=== PATIENT | male | born 1965 | race Caucasian/White ===

== ENCOUNTER 2020-11-12 09:32 | Day surgery (SDC) | payer MEDICARE, OTHER ==
[~2020-11-12] VITALS: Ht 185.4 cm; Wt 90.1 kg
[~2020-11-12 09:32] MED LIST: BACL20 PO; BISA10S PR; Bentyl20 MG UD; DIAZ5 UD; DULCOLAX400 MG/5 M PO; KETO15TC TOP; MAGCIT300 PO; MASOPHEN500 M2 PO; MICONAZOLE NIT130 GM; OMEP20ER PO; RISP1 PO; SENNA LAXATIVE8.6 MG PO; SERT50 PO; STARCH; [UNRECOGNIZED DRUG - OTHER] TOP
--- NOTE | 2020-11-12 10:57 | NUR ---
INTO [facility] VIA PERSONAL W/C WITH RN FROM [facility] HOME FROM HANDICAPPED AT BEDSIDE. MOTHER AVAILABLE FOR TELEPHONE CONSENT. History, Chart, Medications and Allergies reviewed before start of procedure.Patient confirms NPO status and agrees with scheduled surgery. Surgical site prepped with 2% Chlorhexidine cloth wipe. Lungs clear T/O to Auscultation. Patient States Post-Procedure ride home has been arranged.
--- NOTE | 2020-11-12 11:11 | NUR ---
REPORT GIVEN TO NETTIE PAULINO AND ALVAREZ PAULINO
--- NOTE | 2020-11-12 12:02 | NUR ---
WITNESSED CONSCENT FOR SURGEON AND ANNESTHESIOLOGIST. SPOKE WITH PATIENT MOTHER.
--- NOTE | 2020-11-12 12:33 | NUR ---
11/12/20 1232 Joel Guillory History, Chart, Medications and Allergies reviewed before start of procedure. MONITOR INTACT WITH CONTINUOUS PULSE OXIMETRY AND INTERMITTENT BP. 3-LEAD EKG REVIEWED WITH PHYSICIAN PRIOR TO START OF PROCEDURE. O2 VIA N/C INTACT THROUGHOUT SEDATION/PROCEDURE. See Anesthesia record WITH DR ARANDA.
--- NOTE | 2020-11-12 13:07 | NUR ---
RECIEVED PATIENT INTO STEP AND RECIEVED PATIENT. VSS
--- NOTE | 2020-11-12 13:27 | NUR ---
Discharge instructions reviewed with patient. Patient verbalizes understanding. Copy given to patient to take home. Patient States Post-Procedure ride home has been arranged. Discharged via wheelchair to private car for ride home WITH DUE DILIGENCE COORDINATOR.
== END 2020-11-12 13:31 | disposition home or self-care (01) ==
LOC: ORSCMMR 09:32
PROVIDERS: Surgery
PROC: 0DH63UZ Insertion of Feeding Device into Stomach, Percutaneous Approach (ICD-10-PCS; principal; 2020-11-12 11:30)
DX: R13.12 Dysphagia, oropharyngeal phase (principal); G80.8 Other cerebral palsy; Z79.899 Other long term (current) drug therapy
CPT/HCPCS: J0690; J2704; J7120

== ENCOUNTER 2022-10-21 14:22 | Inpatient (IN) | payer OTHER ==
[~2022-10-21] VITALS: Ht 185.4 cm; Wt 87.2 kg
[2022-10-21 15:45] LABS: BASOPHILS ABSOLUTE AUTO 0.03 K/mm3 (0.00-0.23); BASOPHILS PERCENT AUTO 1 % (0-2); EOSINOPHILS ABSOLUTE AUTO 0.06 K/mm3 (0.00-0.68); EOSINOPHILS PERCENT AUTO 1 % (0-6); Hematocrit 34.5 % (37.0-53.0); Hemoglobin 11.9 g/dL (13.5-17.5); IMMATURE GRAN ABSOLUTE AUTO 0.07 K/mm3 (0.00-0.10); IMMATURE GRAN PERCENT AUTO 2 % (0-1); LYMPHOCYTES ABSOLUTE AUTO 0.75 K/mm3 (0.84-5.20); LYMPHOCYTES PERCENT AUTO 18 % (21-46); MONOCYTES ABSOLUTE AUTO 0.48 K/mm3 (0.16-1.47); MONOCYTES PERCENT AUTO 12 % (4-13); Mean Corpuscular HGB Conc 34.5 g/dL (31.5-36.5); Mean Corpuscular Volume 102 fL (80-100); NEUTROPHILS PERCENT AUTO 67 % (41-73); NRBC ABSOLUTE 0.02 K/mm3 (0.00-0.02); NRBC Auto 0.5 /100 WBC (0.0-0.2); Platelet Count 76 K/mm3 (150-400); RDW Coefficient Variation 15.3 % (11.7-14.2); RDW Standard Deviation 55.8 fL (35.1-46.3); White Blood Cell Count 4.19 K/mm3 (4.00-11.30)
[2022-10-21 16:03] LABS: Albumin, Blood 2.8 g/dL (3.4-5.0); Albumin/Globulin Ratio 0.6 (0.8-1.8); Bilirubin, Total 0.5 mg/dL (0.1-1.0); Bun/Creatinine Ratio 45.2 (12.0-20.0); Calcium, Blood 10.1 mg/dL (8.5-10.1); Creatinine, Blood 0.42 mg/dL (0.60-1.20); Globulin, Blood 4.4 g/dL (2.2-4.0); Potassium, Blood 4.1 mmol/L (3.5-5.5); Total Protein, Blood 7.2 g/dL (6.4-8.2)
[2022-10-21 22:20] VITALS: BP 84/47
[2022-10-21] MEDS ORDERED: PSYSENPA PO (22:47)
--- NOTE | 2022-10-22 05:02 | NUR ---
SHIFT SUMMARY PT ARRIVED TO THE FLOOR AT APPROX 2220, CAREGIVER AT BEDSIDE TO ANSWER ADMISSION QUESTIONS. PT IS NONVERBAL AND QUADRAPELIGIC, WHEELCHAIR BOUND AT BASELINE. FULL ASSESSMENT DONE AT THAT TIME, VITALS TAKEN- 2L NC WHEN ARRIVED TO THE FLOOR, CONT PULSE OX IN PLACE. CAREGIVER LEFT BEDSIDE AND PT RESTED WELL THROUGHOUT THE SHIFT. BELONGINGS TAKEN W/ CAREGIVER. WILL CONTINUE TO MONITOR AND REPORT TO ONCOMING RN.
[2022-10-22 05:59] LABS: BASOPHILS ABSOLUTE AUTO 0.02 K/mm3 (0.00-0.23); BASOPHILS PERCENT AUTO 1 % (0-2); EOSINOPHILS ABSOLUTE AUTO 0.06 K/mm3 (0.00-0.68); EOSINOPHILS PERCENT AUTO 2 % (0-6); Hematocrit 33.4 % (37.0-53.0); Hemoglobin 11.1 g/dL (13.5-17.5); IMMATURE GRAN ABSOLUTE AUTO 0.07 K/mm3 (0.00-0.10); IMMATURE GRAN PERCENT AUTO 2 % (0-1); LYMPHOCYTES ABSOLUTE AUTO 0.98 K/mm3 (0.84-5.20); LYMPHOCYTES PERCENT AUTO 30 % (21-46); MONOCYTES ABSOLUTE AUTO 0.31 K/mm3 (0.16-1.47); MONOCYTES PERCENT AUTO 10 % (4-13); Mean Corpuscular HGB 33.9 pg (26.0-34.0); Mean Corpuscular HGB Conc 33.2 g/dL (31.5-36.5); Mean Corpuscular Volume 102 fL (80-100); Mean Platelet Volume 11.1 fL (9.1-12.4); NEUTROPHILS ABSOLUTE AUTO 1.84 K/mm3 (1.96-9.15); NEUTROPHILS PERCENT AUTO 56 % (41-73); NRBC ABSOLUTE 0.02 K/mm3 (0.00-0.02); NRBC Auto 0.6 /100 WBC (0.0-0.2); RDW Coefficient Variation 15.3 % (11.7-14.2); RDW Standard Deviation 56.8 fL (35.1-46.3); Red Blood Cell Count 3.27 M/mm3 (4.30-5.90); White Blood Cell Count 3.28 K/mm3 (4.00-11.30)
[2022-10-22 06:37] VITALS: BP 76/48
[2022-10-22 06:41] VITALS: BP 110/72
[2022-10-22 06:42] LABS: Albumin, Blood 2.4 g/dL (3.4-5.0); Albumin/Globulin Ratio 0.6 (0.8-1.8); Bilirubin, Total 0.4 mg/dL (0.1-1.0); Bun/Creatinine Ratio 39.6 (12.0-20.0); Calcium, Blood 9.5 mg/dL (8.5-10.1); Creatinine, Blood 0.43 mg/dL (0.60-1.20); Magnesium, Blood 1.9 mg/dL (1.6-2.4); Potassium, Blood 4.6 mmol/L (3.5-5.5); Total Protein, Blood 6.4 g/dL (6.4-8.2)
[2022-10-22 07:41] VITALS: BP 107/61
--- NOTE | 2022-10-22 10:18 | NUR ---
Titrated the patient off of O2 via nasal cannula. He was at 1.5 LMP sustaining at 91%. Pt desaturated on RA to 86%, 1.5 L of nasal cannula oxygen restarted and continued at this time.
--- NOTE | 2022-10-22 10:49 | NUR ---
Medications: Unable to give medications due to not having the appropriate equipment to access the patient's PEG tube. Will have to wait for caregiver from [facility] to supply equipment to administer medications and feedings. Physician notified. Pt getting continuous NS via IV.
[2022-10-22 14:59] VITALS: BP 93/64
--- NOTE | 2022-10-22 18:18 | NUR ---
SHIFT SUMMARY: NPO NON-VERBAL AND TOTAL DEPENDENT CP PATIENT. FULL CODE AT RESIDES AT [facility] FOR THE HANDICAP. CAREGIVERS ARE PRESENT PERIODICALLY THROUGHOUT THE SHIFT. ADVISEMENT FROM DR. ESTRADA EARLIER IN THE SHIFT TO WEEN THE PATIENT OFF OF O2. SHORTLY AFTER O2 WAS D/C'D PT'S O2 DESATURATED TO 86%. O2 WAS THEN RESTARTED AND CONTINUED, MAINTAINING THE PT'S O2 SAT OF 91% OR > ON 1.5 L, TOLERATING WELL. PT'S A.M. MEDS AND FEEDING WERE HELD/DELAYED D/T NOT HAVING PEG TUBE ACCESS. SECURE LOCK WAS OBTAINED WITHIN FACILITY, BUT DIDN'T FIT. APPROPRIATE SIZE SECURE LOCK OBTAINED FROM CAREGIVER FROM [facility]. MORNING FEED WAS ADMINISTERED ONCE PEG TUBE WAS ABLE TO BE ACCESSED, HELD OFF ON MORNING MEDS TO AVOID OVERLAP WITH AFTERNOON/EVENING MEDS. Q2 HR TURNS PROVIDED, PATIENT COMFORTABLE, AND NOT IN DISTRESS. PLACED IN SEMI-ALVARADO'S POSITION D/T ASPIRATION PREVENTION AND IMPROVEMENT OF BREATHING R/T PNEUMONIA.
[2022-10-22 19:49] VITALS: BP 114/53
[2022-10-23] VITALS (11 sets, daily range): BP systolic 85–127; BP diastolic 59–75
[2022-10-23 06:24] LABS: BASOPHILS ABSOLUTE AUTO 0.02 K/mm3 (0.00-0.23); BASOPHILS PERCENT AUTO 1 % (0-2); EOSINOPHILS ABSOLUTE AUTO 0.04 K/mm3 (0.00-0.68); EOSINOPHILS PERCENT AUTO 1 % (0-6); Hematocrit 30.9 % (37.0-53.0); Hemoglobin 10.2 g/dL (13.5-17.5); IMMATURE GRAN ABSOLUTE AUTO 0.07 K/mm3 (0.00-0.10); IMMATURE GRAN PERCENT AUTO 2 % (0-1); LYMPHOCYTES ABSOLUTE AUTO 0.71 K/mm3 (0.84-5.20); LYMPHOCYTES PERCENT AUTO 20 % (21-46); MONOCYTES ABSOLUTE AUTO 0.31 K/mm3 (0.16-1.47); MONOCYTES PERCENT AUTO 9 % (4-13); Mean Corpuscular HGB 34.3 pg (26.0-34.0); Mean Corpuscular Volume 104 fL (80-100); Mean Platelet Volume 10.7 fL (9.1-12.4); NEUTROPHILS ABSOLUTE AUTO 2.47 K/mm3 (1.96-9.15); NEUTROPHILS PERCENT AUTO 68 % (41-73); NRBC ABSOLUTE 0.02 K/mm3 (0.00-0.02); NRBC Auto 0.6 /100 WBC (0.0-0.2); Platelet Count 67 K/mm3 (150-400); RDW Coefficient Variation 15.5 % (11.7-14.2); RDW Standard Deviation 58.8 fL (35.1-46.3); Red Blood Cell Count 2.97 M/mm3 (4.30-5.90); White Blood Cell Count 3.62 K/mm3 (4.00-11.30)
[2022-10-23 06:27] LABS: Bun/Creatinine Ratio 36.4 (12.0-20.0); Calcium, Blood 9.4 mg/dL (8.5-10.1); Creatinine, Blood 0.44 mg/dL (0.60-1.20); Potassium, Blood 3.9 mmol/L (3.5-5.5)
--- NOTE | 2022-10-23 15:57 | NUR ---
PT PRESENTS PALE WHITE, COLD CLAMMY. TEMP TEMPORAL 95.5, ORAL NOT AVAIL, DOES NOT FOLLOW INST AT BASELINE, IS NONVERBAL. VS 85/61, P 58, R 12, T 95.5, O2 95% 1L. CALLED SENDY. ORDRES NEW LABS, CBC, CMP, PROCALCITONIN, RECTAL TEMP.
--- NOTE | 2022-10-23 16:02 | NUR ---
NEW VS, 1101/75, P 54, BLANKETS PLACED. NO CHANGE TEMP.
--- NOTE | 2022-10-23 16:53 | NUR ---
PT CALLED DR GARCIAS UPDATE. TEMP RECTAL 92.9. WE HAVE ALREADY PLACED WARM BLANKETS AND K-PAD. VS 124/62, P 62. COLOR PINK NOW. STILL COOL CLAMMY. REQUEST MONIQUE SOLANO, TRANSFER TO PCU, TELE, NEW LABS.
--- NOTE | 2022-10-23 17:17 | NUR ---
ENCYCLOPEDIA RESEARCH WORKER OK TO HAVE ON MEDICAL FLOOR WITH LIZ SOLANO. CALLED DR ESTRADA TO ASK IF OKAY TO KEEP HERE. OKAY TO KEEP MED FLOOR. Q1HR TEMPS UNTIL STABLE
[2022-10-23 17:39] LABS: BASOPHILS ABSOLUTE AUTO 0.01 K/mm3 (0.00-0.23); BASOPHILS PERCENT AUTO 0 % (0-2); EOSINOPHILS ABSOLUTE AUTO 0.04 K/mm3 (0.00-0.68); EOSINOPHILS PERCENT AUTO 1 % (0-6); Hematocrit 31.3 % (37.0-53.0); Hemoglobin 10.4 g/dL (13.5-17.5); IMMATURE GRAN ABSOLUTE AUTO 0.06 K/mm3 (0.00-0.10); IMMATURE GRAN PERCENT AUTO 2 % (0-1); LYMPHOCYTES ABSOLUTE AUTO 0.75 K/mm3 (0.84-5.20); LYMPHOCYTES PERCENT AUTO 27 % (21-46); MONOCYTES ABSOLUTE AUTO 0.18 K/mm3 (0.16-1.47); MONOCYTES PERCENT AUTO 6 % (4-13); Mean Corpuscular HGB 34.2 pg (26.0-34.0); Mean Corpuscular HGB Conc 33.2 g/dL (31.5-36.5); Mean Corpuscular Volume 103 fL (80-100); Mean Platelet Volume 10.9 fL (9.1-12.4); NEUTROPHILS ABSOLUTE AUTO 1.76 K/mm3 (1.96-9.15); NEUTROPHILS PERCENT AUTO 63 % (41-73); Platelet Count 70 K/mm3 (150-400); RDW Coefficient Variation 15.3 % (11.7-14.2); RDW Standard Deviation 56.8 fL (35.1-46.3); Red Blood Cell Count 3.04 M/mm3 (4.30-5.90)
[2022-10-23 17:51] LABS: Albumin, Blood 2.4 g/dL (3.4-5.0); Albumin/Globulin Ratio 0.6 (0.8-1.8); Bilirubin, Total 0.2 mg/dL (0.1-1.0); Bun/Creatinine Ratio 31.4 (12.0-20.0); Calcium, Blood 8.9 mg/dL (8.5-10.1); Creatinine, Blood 0.48 mg/dL (0.60-1.20); Globulin, Blood 3.8 g/dL (2.2-4.0); Thyroid Stimulating Hormone 4.65 uIU/mL (0.360-4.800); Total Protein, Blood 6.2 g/dL (6.4-8.2)
--- NOTE | 2022-10-23 18:46 | NUR ---
PT IS NONVERBAL AT BASELINE. DOES OPEN EYES WHEN FIRST IN ROOM. PT LUNGS CLEAR THIS AM AND THIS AFT. ABLE TO TITRATE DOWN TO 1L ON O2. H/R REG, NO MURMUR NOTED. PLACED ON TELE THIS AFT. NSR AT 69 AT THIS TIME. PT HAD CHANGE IN BP AND TEMP AND COLOR THIS AFT. NOTICED DURING AFTER NOON VITAL SIGN TAKING. TEMP ORAL NOT READABLE, TEMPORAL LOW, UNDER ARM LOW. CALLED DR FOR ORDERS. RECTAL TEMP 92.8. ILZ HUGGER PLACED. UPDATED RENÉ PAULINO. ALSO ABOUT Q 1 HR RECTAL TEMPS UNTIL TEMP NORMAL. PT WAS BOLUSED AND RESTARTED ON NS AT 100 FOR BP. PLACED ON TELE. PT IS PRESENTLY WARM, PINK, UNDER LIZ BLANKET. LAST RECTAL TEMP 94.3. LIGHTLY CLAMMY, BP 124/62 AT 1645, 115/60 NOW. RECOVERY RN IN ROOM THIS JADE, NOTIFIED. BED IN LOW [facility], CALL LITE IN REACH. RENÉ PAULINO NOTIFIED TO KEEP AWARE OF TEMPS TO WHEN REMOVES LIZ BLANKET. TEMP ON MEDIUM SETTING
[2022-10-24 02:45] VITALS: BP 107/47
--- NOTE | 2022-10-24 07:41 | NUR ---
PT WAS HYPOTHERMIC AT START OF SHIFT, WITH HEATED BLANKET HE RETURNED TO NORMAL TEMPERATURE, FINAL RECTAL TEMP PRIOR TO MIDNIGHT WAS 98.0, TEMPORALY CHECK AT 0245 WAS 98.7. HEATED BLANKET DC'D AROUND 2300 LAST NIGHT. 1-2 L NC TO MAINTAIN GREATER THAN 90% SATS. 2 BMS LAST NIGHT. NIGHTLY TUBE FEED ADMINISTERED ORDERED, TOLERATED WELL. NOTED SMALL WOUND ON ROOF OF MOUTH DURING ORAL CARE.
[2022-10-24 08:01] VITALS: BP 101/60
--- NOTE | 2022-10-24 09:00 | NUR ---
PT CONTINUES TO BE NONRESPONDANT PER BASELINE. FACE PRESENTS CALM RELAXED. LIGHTLY PINK COLOR. WARM TO TOUCH. LIZ HUGGER REMOVED LAST JADE. VSS. TEMP 99.3. H/R REG, NO MURMUR NOTED. PER TELE NSR AT 97. LUNGS CLEAR T/O. RESP EASY, UNLABORED. CONTINUES TO BE ON 1L O2. BT X4 LAST BM THIS AM. SOFT. UNFORMED. LOOSE. VOIDS INCONT. IN ATTENDS. ARMS CONTRACTED AT BASELINE. BED IN LOW POSITION, CALL LITE IN REACH. MOSTLY QUAD. DOES MOVE ARMS MINIMALLY.
--- NOTE | 2022-10-24 16:18 | NUR ---
PT QUIET TODAY. CONTINUES TO BE PINK, NORMAL TONE. WARM, NOT COLD. RESP EASY, UNLABORED. ON 1 L O2. RECENTLY D/C IVF. NO CHANGES NOTED TODAY. CHEST XRAY PERFORMED BY RADIOLOGY THIS AFTERNOON. NO NEW CHANGES NOTED. BED IN LOW POSITION,C ALL LITE IN REACH, PT MOSTLY QUAD.
[2022-10-24 17:18] VITALS: BP 109/58
[2022-10-24 19:56] VITALS: BP 116/56
[2022-10-25 01:51] VITALS: BP 116/63
[2022-10-25 07:37] VITALS: BP 125/63
[2022-10-25 15:56] VITALS: BP 108/55
[2022-10-25] MEDS ORDERED: AMOX-CLAV200 MG/5 M PT (17:02)
[2022-10-25] MEDS ORDERED: AZIT250 PT (17:03)
[2022-10-25] MEDS ORDERED: Q-Tussin100 MG/5 M PT (17:06)
[2022-10-25] MEDS ORDERED: VISBIOME 112.51 EACH PT (17:07)
--- NOTE | 2022-10-25 18:47 | NUR ---
DC- PT DISCHARGED TO [facility] STAFF. ALL QUESTIONS ANSWERED AND PAPERWORK SIGNED. PT LEFT WITH ALL BELONGINGS IN STABLE CONDITION ON 1L O2.
== END 2022-10-25 18:45 | disposition home or self-care (01) | DRG 193 ==
LOC: ER 14:22 → MEDS 14:23
PROVIDERS: Internal Medicine; Physician Assistant; ADMIT Student in an Organized Health Care Education/Training Program
DX: J18.9 Pneumonia, unspecified organism (principal); J96.01 Acute respiratory failure with hypoxia; D61.818 Other pancytopenia; D53.9 Nutritional anemia, unspecified; G80.9 Cerebral palsy, unspecified; E66.9 Obesity, unspecified; K21.9 Gastro-esophageal reflux disease without esophagitis; E78.5 Hyperlipidemia, unspecified; I95.9 Hypotension, unspecified; R13.10 Dysphagia, unspecified; R68.0 Hypothermia, not associated with low environmental temperature; F32.A Depression, unspecified; Z68.26 Body mass index [BMI] 26.0-26.9, adult; Z99.3 Dependence on wheelchair; Z99.81 Dependence on supplemental oxygen; Z93.1 Gastrostomy status; Z79.899 Other long term (current) drug therapy
CPT/HCPCS: 36415; 71045; 71046; 80048; 80053; 82533; 82947; 83605; 83735; 83880; 84145; 84443; 85025; 87040; 93005; 93010; 94762; 96361; 96365; 96372; 96375; 99285-25; A9270; C9113; G0378; J0456; J0696; J1650; J7030; J7040; J7050

== ENCOUNTER 2023-01-22 08:28 | Emergency (ER) | payer OTHER ==
[~2023-01-22] VITALS: Ht 182.9 cm; Wt 113.4 kg
[~2023-01-22 08:28] MED LIST changes: +AMOX-CLAV200 MG/5 M PT; +AZIT250 PT; +PSYSENPA PO; +Q-Tussin100 MG/5 M PT; +VISBIOME 112.51 EACH PT
[2023-01-22 09:17] LABS: Hematocrit 39.7 % (37.0-53.0); Hemoglobin 13.5 g/dL (13.5-17.5); Mean Corpuscular HGB 32.3 pg (26.0-34.0); Mean Corpuscular Volume 95 fL (80-100); Mean Platelet Volume 10.9 fL (9.1-12.4); Platelet Count 61 K/mm3 (150-400); RDW Coefficient Variation 13.9 % (11.7-14.2); RDW Standard Deviation 46.8 fL (35.1-46.3); Red Blood Cell Count 4.18 M/mm3 (4.30-5.90)
[2023-01-22 09:26] LABS: Albumin, Blood 3.2 g/dL (3.4-5.0); Albumin/Globulin Ratio 0.8 (0.8-1.8); Bilirubin, Total 0.7 mg/dL (0.1-1.0); Calcium, Blood 9.8 mg/dL (8.5-10.1); Creatinine, Blood 0.47 mg/dL (0.60-1.20); Globulin, Blood 4.1 g/dL (2.2-4.0); Potassium, Blood 4.4 mmol/L (3.5-5.5); Total Protein, Blood 7.3 g/dL (6.4-8.2)
[2023-01-22 09:30] VITALS: BP 99/64
[2023-01-22 09:38] LABS: BAND PERCENT MAN 4 % (0-8); BASOPHILS PERCENT MAN 0 % (0-2); EOSINOPHILS PERCENT MAN 0 % (0-6); LYMPHOCYTES PERCENT MAN 6 % (21-46); MONOCYTES PERCENT MAN 3 % (4-13); NEUTROPHILS ABSOLUTE MAN 6.18 K/mm3 (1.96-9.15); SEG NEUTROPHILS PERCENT MAN 87 % (41-73); TOTAL CELLS COUNTED 100
[2023-01-22 10:33] LABS: Influenza A, PCR NEGATIVE (NEGATIVE); Influenza B, PCR NEGATIVE (NEGATIVE); Resp Syncytial Virus, PCR NEGATIVE (NEGATIVE); SARS-Cov-2 (COVID-19) PCR, MMC NEGATIVE (NEGATIVE)
== END 2023-01-22 10:59 | disposition home or self-care (01) ==
LOC: ER 08:28
PROVIDERS: Emergency Medicine
DX: J06.9 Acute upper respiratory infection, unspecified (principal); Z20.822 Contact with and (suspected) exposure to COVID-19; Z79.899 Other long term (current) drug therapy
CPT/HCPCS: 0241U; 71045; 80053; 83605; 84145; 85025; J7030

== ENCOUNTER 2025-02-24 21:52 | Inpatient (IN) | payer OTHER ==
[~2025-02-24] VITALS: Ht 182.9 cm; Wt 69.6 kg
[~2025-02-24 21:52] MED LIST changes: +ATOR40TA PT; -BACL20 PO; +BACL20 PT; +Bentyl20 MG PT; -Bentyl20 MG UD; +DIAZ5 PT; -DIAZ5 UD; -DULCOLAX400 MG/5 M PO; +DULCOLAX400 MG/5 M PT; +Fleet Enema132 ML PR; -MASOPHEN500 M2 PO; +MASOPHEN500 M2 PT; +OMEP20ER PT; +PERIDEX15 ML MM; -RISP1 PO; +RISP1 PT; -SERT50 PO; +SERT50 PT; +SIME80CH PO
[2025-02-24 23:21] LABS: BASOPHILS ABSOLUTE AUTO 0.04 K/mm3 (0.00-0.23); BASOPHILS PERCENT AUTO 1 % (0-2); EOSINOPHILS ABSOLUTE AUTO 0.15 K/mm3 (0.00-0.68); EOSINOPHILS PERCENT AUTO 4 % (0-6); Hematocrit 41.7 % (37.0-53.0); Hemoglobin 14.4 g/dL (13.5-17.5); IMMATURE GRAN ABSOLUTE AUTO 0.02 K/mm3 (0.00-0.10); IMMATURE GRAN PERCENT AUTO 1 % (0-1); LYMPHOCYTES ABSOLUTE AUTO 1.54 K/mm3 (0.84-5.20); LYMPHOCYTES PERCENT AUTO 40 % (21-46); MONOCYTES ABSOLUTE AUTO 0.26 K/mm3 (0.16-1.47); MONOCYTES PERCENT AUTO 7 % (4-13); Mean Corpuscular HGB Conc 34.5 g/dL (31.5-36.5); Mean Corpuscular Volume 93 fL (80-100); NEUTROPHILS ABSOLUTE AUTO 1.80 K/mm3 (1.96-9.15); NEUTROPHILS PERCENT AUTO 47 % (41-73); NRBC ABSOLUTE 0.00 K/mm3 (0.00-0.02); NRBC Auto 0.0 /100 WBC (0.0-0.2); RDW Coefficient Variation 12.7 % (11.7-14.2); RDW Standard Deviation 42.9 fL (35.1-46.3)
[2025-02-24 23:33] LABS: Alanine Aminotransfer (ALT/SGP 74.0 U/L (12-78); Albumin, Blood 3.5 g/dL (3.4-5.0); Albumin/Globulin Ratio 1.0 (0.8-1.8); Anion Gap 8.0 mmol/L (3-11); Aspartate Aminotrans (AST/SGOT 38.0 U/L (12-37); Bilirubin, Total 0.5 mg/dL (0.1-1.0); Blood Urea Nitrogen 18.0 mg/dL (8-24); CO2, Blood 27.0 mmol/L (21-32); Calcium, Blood 8.8 mg/dL (8.5-10.1); Chloride, Blood 105.0 mmol/L (98-108); Creatinine, Blood 0.41 mg/dL (0.60-1.20); Globulin, Blood 3.6 g/dL (2.2-4.0); Glucose, Blood 98.0 mg/dL (70-99); Magnesium, Blood 2.1 mg/dL (1.6-2.4); Potassium, Blood 3.9 mmol/L (3.5-5.5); Sodium, Blood 136.0 mmol/L (136-145); Total Protein, Blood 7.1 g/dL (6.4-8.2)
[2025-02-25 03:12] VITALS: BP 116/72
--- NOTE | 2025-02-25 04:11 | NUR ---
@6246 REPORT RECEIVED FROM ED RN REE. @7748 PT ARRIVED TO THE MEDICAL FLOOR RM #[id number]. PT WAS ACCOMPANIED BY HIS SHALLOT PACKER [facility]. PT WAS TRANSFERRED FROM THE [facility] TO THE HOSPITAL BED USING A SLIDING SHEET AND THREE STAFF ASSIST. CHARGE NURSE DANDRE COMPLETED THE ADMISSION ASSESSMENT. MED REC WAS COMPLETED BY THE ED RN REE. BED ALARM ON. Q2HR REPOSITIONING. Q2HR ATTEND CHECKS. THREE RAILS UP. CALL LIGHT W/I REACH. CAREGIVER SAMANTHA DID MENTION NOT TO HAVE ANY ITEMS W/I THE PT'S REACH. PT WILL ATTEMPT TO GRAB AND EAT ANY ITEMS. LR INFUSING ORDERED. THIS GARDEN IMPLEMENT MECHANIC SITTING BY THE DOOR MONITORING THE PT. BED AT THE LOWEST POSITION.
[2025-02-25] MEDS ORDERED: Polyethylene Glycol 3350 17 gm PO PRN (04:25)
[2025-02-25 05:54] LABS: BASOPHILS ABSOLUTE AUTO 0.05 K/mm3 (0.00-0.23); BASOPHILS PERCENT AUTO 1 % (0-2); EOSINOPHILS ABSOLUTE AUTO 0.13 K/mm3 (0.00-0.68); EOSINOPHILS PERCENT AUTO 4 % (0-6); Hematocrit 39.9 % (37.0-53.0); Hemoglobin 13.7 g/dL (13.5-17.5); IMMATURE GRAN ABSOLUTE AUTO 0.01 K/mm3 (0.00-0.10); IMMATURE GRAN PERCENT AUTO 0 % (0-1); LYMPHOCYTES ABSOLUTE AUTO 1.59 K/mm3 (0.84-5.20); LYMPHOCYTES PERCENT AUTO 45 % (21-46); MONOCYTES ABSOLUTE AUTO 0.21 K/mm3 (0.16-1.47); MONOCYTES PERCENT AUTO 6 % (4-13); Mean Corpuscular HGB Conc 34.3 g/dL (31.5-36.5); Mean Corpuscular Volume 94 fL (80-100); NEUTROPHILS ABSOLUTE AUTO 1.58 K/mm3 (1.96-9.15); NEUTROPHILS PERCENT AUTO 44 % (41-73); NRBC ABSOLUTE 0.00 K/mm3 (0.00-0.02); NRBC Auto 0.0 /100 WBC (0.0-0.2); Platelet Count 148 K/mm3 (150-400); RDW Coefficient Variation 12.9 % (11.7-14.2); RDW Standard Deviation 43.8 fL (35.1-46.3)
[2025-02-25 06:14] LABS: Anion Gap 6.0 mmol/L (3-11); Blood Urea Nitrogen 15.0 mg/dL (8-24); CO2, Blood 27.0 mmol/L (21-32); Calcium, Blood 9.2 mg/dL (8.5-10.1); Chloride, Blood 105.0 mmol/L (98-108); Creatinine, Blood 0.4 mg/dL (0.60-1.20); Glucose, Blood 89.0 mg/dL (70-99); Potassium, Blood 3.7 mmol/L (3.5-5.5); Sodium, Blood 134.0 mmol/L (136-145)
[2025-02-25 07:23] VITALS: BP 108/60
[2025-02-25] MEDS ORDERED: Enoxaparin 40 MG/0.4 ML SYR SC SCH (09:00)
--- NOTE | 2025-02-25 10:25 | NUR ---
NOTE PT HAS 1 ON 1 SITTER DUE TO NIGHT RN REPORTED "WILL EAT ANYTHING IN REACH." FALL PRECAUTIONS IN PLACE AND CALL LIGHT IN REACH. HAS GI TUBE, NO DIETITION OR TUBE FEEDINGS ORDERED. CALLED DIETITION, DIETITION REPORTED NOT KNOWING ABOUT PT. CALLED DR. DERAS TO REPORT NO ORDERS RELATED TO GI TUBE OR LAXATIVES ORDERED. REPORTED "ILL COME SEE AND ASSESS PT." PT NPO.
--- NOTE | 2025-02-25 14:02 | NUR ---
NOTE THIS AM DR. FELIPE ON PT. REPORTED HEARING "HYPOACTIVE BOWEL SOUNDS." REPORTED "WILL CALL DR. RICKS FOR CONSULT. CONTINUE FLUIDS. CAN D/C LOVENOX SINCE HIS BEDREST ACTIVITY IS HIS BASELINE." CALLED DR. DERAS DUE TO THIS RN NOTICING SCOPOLAMINE PATCH. CLARIFIED IF SHE WANTS PATCH CONTINUED WITH ORDER. DR. DERAS REPORTED "LIKELY WAS APPLIED DURING TRANSPORT CAN D/C." THIS RN REMOVED SCOLPOLOMINE PATCH BEHIND R EAR AT 1400. PT REMAINS NPO.
[2025-02-25] MEDS ORDERED: Lactulose 200 GM/300 ML Enema 300ML BTL PR PRN (14:45)
[2025-02-25 17:17] VITALS: BP 97/53
--- NOTE | 2025-02-25 19:42 | NUR ---
SHIFT SUMMARY PT NONVERBAL W CERBRAL PALSY, AND CONTRACTIONS AND QUAD. PT Q2 TURNED, ADMITTED DUE TO CONSTIPATION. 1 ON 1 SITTER D/C. PT ON BEDREST. VSS. THIS RN NOTED NO PAIN/DISCOMFORT. DR. DERAS REPORTED ONCE PT IS STOOLING WE WILL START FEEDINGS IN GI TUBE BUT NOT YET. PT IS NPO. DR. DERAS ORDERED SOAP MOHSEN ENEMA, THIS RN ADMINISTERED ENEMA, UNABLE TO ENCOURAGE PT TO CLENCH RECTUM, REPORTED TO DR. DERAS LIQUID ONCE IN CAME OUT WHILE IN ADEQUATE ENEMA POSITIONING ON L SIDE. GREEN CLEAR LIQUID CAME OUT OF RECTUM BUT WITHOUT FORMED STOOL. REPORTED TO DR. DERAS ENEMA OUTCOME. DR. DERAS REPORTED NIGHT RN SHOULD ADMINISTER SCHEDULED ENULOSE SCHEDULED THROUGH GTUBE AND PRN ENULOSE ENEMA, FOR BOWEL CARE. THIS RN REPORTED TO NIGHT RN. DR. DERAS PUT IN DIETITION CONSULT. PT IN BED, BED IN LOWEST POSITION, CALL LIGHT IN REACH. PT LR FLUIDS RUNNING AT 125ML/HR
[2025-02-25 20:50] VITALS: BP 101/65
[2025-02-25] MEDS ORDERED: Ondansetron HCl 2 MG / ML 2ML Vial IV PRN (21:10)
--- NOTE | 2025-02-26 01:12 | NUR ---
@5133 LACTULOSE ENEMA ADMINISTERED ORDERED. PT TOLERATED WELL. NO RESULTS OF 0113. CHARGE NURSE AWARE.
--- NOTE | 2025-02-26 03:14 | NUR ---
SHIFT SUMMARY LACTULOSE ENEMA ADMINISTERED AT HS. NO RESULTS OF 314. PT RESTING ON HIS LEFT SIDE. PT TOLERATED WELL. NO PAIN PER FACE SCALE NOTED. LACTULOSE AND HS SCHEDULED MEDS CRUSHED VIA G-TUBE WITH 200MLS. STAFF MEMBER FROM [facility] REBECCA IN THE G-TUBE CONNECTOR PIECE. IT NEEDS TO GO BACK WITH THE PT PER [facility] STFF. PT HAD A SITTER APPROXIMATELY 0300 DURING THIS SHIFT NO ANXIETY NOTED/REPORTED TO THIS IS ELECTRICAL SOFTWARE ENGINEER. PT IS NONVERBAL WITH INTELLECTUAL AND PHYSICAL DISABILITIES. BED AT THE LOWEST POSITTOM. CALL LIGHT W/I REACH.
--- NOTE | 2025-02-26 04:15 | NUR ---
SHIFT SUMMARY NO ACUTE EVENTS DURING THIS SHIFT. STAFF MEMBER FROM [facility] BROUGHT IN A CONNECTION TUBING FOR G-TUBE, IN ORDER TO ADMINISTER HS SCHEDULED MEDICATIONS. HS SCHEDULED MEDS ADMINISTERED, PT TOLERATED WELL. HOB ELEVATED>30 DEGREES. LACTULOSE ENEMA ADMINISTERED, NO RESULTS/NO BM OR 0445 THIS MORNING. NO PAIN NOTED PER FACE SCALE. Q2HR REPOSITIONING. VOIDING WELL, Q2HR CHECKS FOR ATTEND CHANGE. BED AT THE LOWEST POSITION. FREQUENT ROUNDING.
[2025-02-26 05:29] LABS: BASOPHILS ABSOLUTE AUTO 0.03 K/mm3 (0.00-0.23); BASOPHILS PERCENT AUTO 1 % (0-2); EOSINOPHILS ABSOLUTE AUTO 0.09 K/mm3 (0.00-0.68); EOSINOPHILS PERCENT AUTO 4 % (0-6); Hematocrit 36.6 % (37.0-53.0); Hemoglobin 12.4 g/dL (13.5-17.5); IMMATURE GRAN ABSOLUTE AUTO 0.00 K/mm3 (0.00-0.10); IMMATURE GRAN PERCENT AUTO 0 % (0-1); LYMPHOCYTES ABSOLUTE AUTO 0.92 K/mm3 (0.84-5.20); LYMPHOCYTES PERCENT AUTO 38 % (21-46); MONOCYTES ABSOLUTE AUTO 0.14 K/mm3 (0.16-1.47); MONOCYTES PERCENT AUTO 6 % (4-13); Mean Corpuscular HGB Conc 33.9 g/dL (31.5-36.5); Mean Corpuscular Volume 93 fL (80-100); NEUTROPHILS ABSOLUTE AUTO 1.25 K/mm3 (1.96-9.15); NEUTROPHILS PERCENT AUTO 51 % (41-73); NRBC ABSOLUTE 0.00 K/mm3 (0.00-0.02); NRBC Auto 0.0 /100 WBC (0.0-0.2); Platelet Count 117 K/mm3 (150-400); RDW Coefficient Variation 12.5 % (11.7-14.2); RDW Standard Deviation 42.6 fL (35.1-46.3)
[2025-02-26 05:59] LABS: Alanine Aminotransfer (ALT/SGP 91.0 U/L (12-78); Albumin, Blood 3.1 g/dL (3.4-5.0); Albumin/Globulin Ratio 1.1 (0.8-1.8); Anion Gap 7.0 mmol/L (3-11); Aspartate Aminotrans (AST/SGOT 55.0 U/L (12-37); Bilirubin, Total 0.8 mg/dL (0.1-1.0); Blood Urea Nitrogen 13.0 mg/dL (8-24); CO2, Blood 27.0 mmol/L (21-32); Calcium, Blood 8.5 mg/dL (8.5-10.1); Chloride, Blood 108.0 mmol/L (98-108); Creatinine, Blood 0.41 mg/dL (0.60-1.20); Globulin, Blood 2.8 g/dL (2.2-4.0); Glucose, Blood 69.0 mg/dL (70-99); Magnesium, Blood 2.0 mg/dL (1.6-2.4); Potassium, Blood 4.0 mmol/L (3.5-5.5); Sodium, Blood 138.0 mmol/L (136-145); Total Protein, Blood 5.9 g/dL (6.4-8.2)
[2025-02-26 07:33] VITALS: BP 106/64
--- NOTE | 2025-02-26 11:05 | NUR ---
NOTE AM LABS SHOWED BLOOD SUGAR IS 69. RECHECKED PT BLOOD SUGAR, 66 READ ON CBG. NOTIFIED DR. TREVINO, DR. TREVINO SCHEDULED Q6 ACCU CHECKS, THIS RN NOTIFIED MOTORBOAT MECHANIC. DR. TREVINO ALSO ORDERED D5 W HALF NS. D/C LR. BACLOFEN AND VALIUM SCHEDULED TID, GIVEN LATE. PHARMACY SAID "OK TO GIVE BACLOFEN AND VALIUM NOW AND THEN NEXT TIME TO ADMINISTER IS AT 1600 THEN TELL NIGHT RN TO GIVE AT 2100."
[2025-02-26] MEDS ORDERED: D5W-1/2NS 1,000 ML IV SCH (11:30)
--- NOTE | 2025-02-26 16:20 | NUR ---
NOTE PT HAD BM. LIQUID/GREEN, NO FORMED STOOL FILLED ATTENDS. PT CHANGED AND CLEANED W NEW ATTENDS ON. REPORTED TO DR. TREVINO. DR. TREVINO REPORTED "GIVE SUPPOSITORY AT 6PM, GIVE ENEMA TWO HOURS LATER. START BREAKFAST IN AM." THIS RN WILL LET NIGHT RN KNOW ABOUT ENEMA TONIGHT.
[2025-02-26 16:54] VITALS: BP 102/62
--- NOTE | 2025-02-26 19:39 | NUR ---
SHIFT SUMMARY PT NONVERBAL W CERBRAL PALSY, AND CONTRACTIONS AND QUAD. PT Q2 TURNED, ADMITTED DUE TO OBSTIPATION. PT IS A LIFT PT. VSS. THIS RN NOTED NO PAIN/DISCOMFORT. PT IS NPO. THIS RN ADMINISTERED SUPPOSITORY AT 6PM. TOLD NIGHT RN REPORTED TO GIVE ENEMA AT 8PM. PT HAD 2 BM TODAY. PLAM TO START FEEDINGS AT BREAKFAST TIME. LACTULOSE ORDERED THROUGH G TUBE, CREAM GATHERER CAME TO ASSESS PT NUTRITION NEEDS TODAY. 100ML FLUSH ADMINISTERED POST MEDS. PT IN BED, BED IN LOWEST POSITION, CALL LIGHT IN REACH. PT D5 W HALF NS FLUIDS RUNNING AT 125ML/HR. PT INC. ATTENDS IN PLACE AND CHANGED PRN. PT NOW Q6 BLOOD SUGAR CHECK. PT LAST BLOOD SUGAR WAS 112. VSS
[2025-02-26 20:07] VITALS: BP 105/70
[2025-02-27 01:04] VITALS: BP 102/68
--- NOTE | 2025-02-27 04:54 | NUR ---
SHIFT SUMMARY NOC PT A/O TO NONE. Q2HH/PRN TURNS. VSS. Q6H CBG'S 114, AND THIS AM. PT HAD XL LIQUID BM AFTER RECEIVING BEDTIME DOSE OF LACTULOSE. PT NPO AND HAS G TUBE IN PLACE AND WILL BEGIN TUBE FEEDINGS TODAY AT BREAKFAST. PT HAS D5W 1/2 NS INFUSING @ 125 ML/HR. PT CURRENTLY RESTING WITH BED ALARM ON, BED IN LOWEST POSITION, AND CALL LIGHT WITHIN REACH.
[2025-02-27 05:36] LABS: BASOPHILS ABSOLUTE AUTO 0.03 K/mm3 (0.00-0.23); BASOPHILS PERCENT AUTO 1 % (0-2); EOSINOPHILS ABSOLUTE AUTO 0.08 K/mm3 (0.00-0.68); EOSINOPHILS PERCENT AUTO 3 % (0-6); Hematocrit 35.6 % (37.0-53.0); Hemoglobin 12.3 g/dL (13.5-17.5); IMMATURE GRAN ABSOLUTE AUTO 0.00 K/mm3 (0.00-0.10); IMMATURE GRAN PERCENT AUTO 0 % (0-1); LYMPHOCYTES ABSOLUTE AUTO 0.97 K/mm3 (0.84-5.20); LYMPHOCYTES PERCENT AUTO 34 % (21-46); MONOCYTES ABSOLUTE AUTO 0.20 K/mm3 (0.16-1.47); MONOCYTES PERCENT AUTO 7 % (4-13); Mean Corpuscular HGB Conc 34.6 g/dL (31.5-36.5); Mean Corpuscular Volume 94 fL (80-100); NEUTROPHILS ABSOLUTE AUTO 1.56 K/mm3 (1.96-9.15); NEUTROPHILS PERCENT AUTO 55 % (41-73); NRBC ABSOLUTE 0.00 K/mm3 (0.00-0.02); NRBC Auto 0.0 /100 WBC (0.0-0.2); Platelet Count 109 K/mm3 (150-400); RDW Coefficient Variation 12.6 % (11.7-14.2); RDW Standard Deviation 42.7 fL (35.1-46.3)
[2025-02-27 05:59] LABS: Alanine Aminotransfer (ALT/SGP 78.0 U/L (12-78); Albumin, Blood 2.9 g/dL (3.4-5.0); Albumin/Globulin Ratio 1.0 (0.8-1.8); Anion Gap 8.0 mmol/L (3-11); Aspartate Aminotrans (AST/SGOT 38.0 U/L (12-37); Bilirubin, Total 0.4 mg/dL (0.1-1.0); Blood Urea Nitrogen 5.0 mg/dL (8-24); CO2, Blood 27.0 mmol/L (21-32); Calcium, Blood 8.1 mg/dL (8.5-10.1); Chloride, Blood 110.0 mmol/L (98-108); Creatinine, Blood 0.39 mg/dL (0.60-1.20); Globulin, Blood 2.8 g/dL (2.2-4.0); Glucose, Blood 107.0 mg/dL (70-99); Magnesium, Blood 2.1 mg/dL (1.6-2.4); Potassium, Blood 3.6 mmol/L (3.5-5.5); Sodium, Blood 141.0 mmol/L (136-145); Total Protein, Blood 5.7 g/dL (6.4-8.2)
[2025-02-27 07:41] VITALS: BP 91/62
[2025-02-27 19:42] VITALS: BP 98/59
--- NOTE | 2025-02-27 20:04 | NUR ---
SUMMARY- PT DEPENDANT IN CARE, NONVERBAL. TURNED Q2, INCONT CARE. PT VOIDING LG AMOUNTS EACH TIME. IVF DC'D. STARTED TUBE FEED BOLUS WITH 100ML H2O BEFORE AND AFTER. VSS, ROOM AIR SAT 97 %. PT HAS DIM LUNG SOUNDS. OCC MOIST COUGH UNABLE TO CLEAR, PRN YANKAUR ASSIST WITH CLEAR STRINGY SPUTUM. NO BM THIS SHIFT, LACTALOSE ADMIN 1400 DOSE, HELD AM DOSE XXXLG LOOSE BM REPORTED NOC BEFORE. KUB PERFORMED THIS AFTERNOON TO F/U ON PROGRESS. PLAN LIKELY TO DC BACK TO HOME FOR HANDICAP IF PT TOLERATING TF AND KUB SHOWING GOOD RESULT. VSS, BP STABLE/RUNS 100'S/60'S, HR IN 50'S. HEEL GUARDS IN PLACE. SKIN ALL INTACE. BUTTON/PEG WITH SCANT SEROUS CLEANSED WITH NS, NO DRAIN SPONGE PT HAS PICA. ALL OBJECTS HE COULD INGEST KEPT CLEAR OF PT. REPORED ALL TO ED MARIANO RN
--- NOTE | 2025-02-27 20:21 | NUR ---
THIS RN NOTED RESULTS OF ABD XRAY SHOWING RETENTION OF STOOL IN COLON. REPORTED TO VENITA MARIANO TO RELAY TO ED MARIANO RN TO CONT LACTALOSE AND SUPPOSITORY TO ASSIST IN BOWEL EVACUATION BEFORE PT CAN GO BACK TO HOME FOR HANDICAP TOMORROW
[2025-02-27 23:58] VITALS: BP 115/75
[2025-02-28] VITALS (7 sets, daily range): BP systolic 79–115; BP diastolic 54–65
[2025-02-28] MEDS ORDERED: NS 500 ML IV ONE (01:10)
--- NOTE | 2025-02-28 05:42 | NUR ---
SHIFT SUMMARY: Pt is admitted for obstipation and is a DNR. is alert but not able to make needs known. Will make noises as if trying to respond. ADLs have been 1-2 depending on activity. No SX of pain noted by staff. Did have a med to lg soft BM.
[2025-02-28 05:51] LABS: BASOPHILS ABSOLUTE AUTO 0.03 K/mm3 (0.00-0.23); BASOPHILS PERCENT AUTO 1 % (0-2); EOSINOPHILS ABSOLUTE AUTO 0.11 K/mm3 (0.00-0.68); EOSINOPHILS PERCENT AUTO 3 % (0-6); Hematocrit 36.1 % (37.0-53.0); Hemoglobin 12.5 g/dL (13.5-17.5); IMMATURE GRAN ABSOLUTE AUTO 0.00 K/mm3 (0.00-0.10); IMMATURE GRAN PERCENT AUTO 0 % (0-1); LYMPHOCYTES ABSOLUTE AUTO 1.11 K/mm3 (0.84-5.20); LYMPHOCYTES PERCENT AUTO 27 % (21-46); MONOCYTES ABSOLUTE AUTO 0.22 K/mm3 (0.16-1.47); MONOCYTES PERCENT AUTO 5 % (4-13); Mean Corpuscular HGB Conc 34.6 g/dL (31.5-36.5); Mean Corpuscular Volume 92 fL (80-100); NEUTROPHILS ABSOLUTE AUTO 2.62 K/mm3 (1.96-9.15); NEUTROPHILS PERCENT AUTO 64 % (41-73); NRBC ABSOLUTE 0.00 K/mm3 (0.00-0.02); NRBC Auto 0.0 /100 WBC (0.0-0.2); Platelet Count 117 K/mm3 (150-400); RDW Coefficient Variation 13.0 % (11.7-14.2); RDW Standard Deviation 42.8 fL (35.1-46.3)
[2025-02-28 07:03] LABS: Alanine Aminotransfer (ALT/SGP 79.0 U/L (12-78); Albumin, Blood 3.1 g/dL (3.4-5.0); Albumin/Globulin Ratio 1.0 (0.8-1.8); Anion Gap 7.0 mmol/L (3-11); Aspartate Aminotrans (AST/SGOT 33.0 U/L (12-37); Bilirubin, Total 0.4 mg/dL (0.1-1.0); Blood Urea Nitrogen 8.0 mg/dL (8-24); CO2, Blood 27.0 mmol/L (21-32); Calcium, Blood 8.4 mg/dL (8.5-10.1); Chloride, Blood 109.0 mmol/L (98-108); Creatinine, Blood 0.39 mg/dL (0.60-1.20); Globulin, Blood 3.1 g/dL (2.2-4.0); Glucose, Blood 83.0 mg/dL (70-99); Magnesium, Blood 2.1 mg/dL (1.6-2.4); Potassium, Blood 3.4 mmol/L (3.5-5.5); Sodium, Blood 140.0 mmol/L (136-145); Total Protein, Blood 6.2 g/dL (6.4-8.2)
[2025-02-28] MEDS ORDERED: NS 500 ML IV SCH (07:50)
[2025-02-28] MEDS ORDERED: NS 1,000 ML IV SCH (10:30)
[2025-02-28] MEDS ORDERED: Enulose10 GM/15 M UD (16:13)
[2025-02-28] MEDS ORDERED: MAGNESIUM OXID500 MG PO (16:14)
--- NOTE | 2025-02-28 16:57 | NUR ---
DISCHARGE NOTE PATIENT ALERT, NONVERBAL AT BASELINE. COOPERATIVE WITH CARE. PATIENT WITH LOW BLOOD PRESSURE THIS MORNING OF 78/47, DR. TREVINO NOTIFIED AND NEW ORDER RECIEVED FOR 500 ML BOLUS. BLOOD PRESSURE INCREASED TO 115/56. TWO HOURS LATER BP RECHECKED AND REMAINED LOW AT 93/60. MD NOTIFIED AGAIN AND NS AT 125 ORDERED. BLOOD PRESSURES REMAINED SOFT BUT STABLE. DISCHARGE ORDER RECIEVED AND PATIENT MONITORED UNTIL 1800 TO ENSURE BLOOD PRESSURES STABLE THEN DISCHARGED. PATIENT REPOSITIONED Q2 HOURS. PUREWICK IN PLACE REMOVED PRIOR TO DISCHARGE. TUBE FEEDS ADMINISTERED PER AUG. CONRADO FROM [facility] FOR [facility] HAND[facility]AP ARRIVED TO TRANSPORT PATIENT BACK TO THE FACILITY. NO OTHER CONCERNS, PATIENT ASSISTED TO PERSONAL WHEELCHAIR VIA LIFT TRANSFER AND ALL BELONGINGS SENT WITH PATIENT AND CONRADO.
== END 2025-02-28 16:48 | disposition home or self-care (01) | DRG 392 ==
LOC: ER 21:52 → MEDS 02-25 02:06
PROVIDERS: Family Medicine; Student in an Organized Health Care Education/Training Program; ADMIT Internal Medicine
DX: K59.00 Constipation, unspecified (principal); G80.8 Other cerebral palsy; R91.8 Other nonspecific abnormal finding of lung field; M62.838 Other muscle spasm; Z66 Do not resuscitate; I95.9 Hypotension, unspecified; Z93.1 Gastrostomy status; Z79.899 Other long term (current) drug therapy; Z98.890 Other specified postprocedural states
CPT/HCPCS: 36415; 74018; 74177; 80048; 80053; 82947; 83690; 83735; 85025; 99284-25; A9270; J2405; J7030; J7042; J7120; Q9967

== ENCOUNTER → 2025-04-21 | Outpatient (CLI) | payer OTHER ==
[~2025-04-21] MED LIST changes: +Enulose10 GM/15 M UD; +MAGNESIUM OXID500 MG PO
== END ==
LOC: LAB 15:18 → LAB SHORT 15:18
DX: N39.0 Urinary tract infection, site not specified (principal)
CPT/HCPCS: 87077; 87086; 87186